=== PATIENT | male | born 1945 | race African-American/Black ===

== ENCOUNTER 2023-04-21 09:09 | Day surgery (SDC) | payer BC ==
[~2023-04-21] VITALS: Ht 167.6 cm; Wt 87.2 kg
[~2023-04-21 09:09] MED LIST: BRILINTA90 MG PO; COZAAR 50MG50 MG/TAB PO; EPCLUSA 400 MG1 EACH PO; IMDUR 60MG60 MG/TAB PO; LASIX 20MG TABL20 MG PO; LR 1,000 ML IV SCH; MAGNESIUM200 MG PO; MASON NATURAL2000 IU PO; Ondansetron 4 MG/2 ML VIAL IV PRN; PROAIR HFA0.09 MG/AC IH; RESTORIL 1515 MG/CAP PO; TOPROL XL 25MG25 MG PO; ZOCOR 20MG20 MG PO; ZOFRAN 4MG T4 MG/TAB PO
[2023-04-21] MEDS ORDERED: PLAVIX 75MG TAB75 MG PO (09:59)
[2023-04-21] MEDS ORDERED: KLOR-CON M2020 MEQ PO (09:59)
[2023-04-21] MEDS ORDERED: ASPIRIN E.C. 8181 MG PO (10:01)
[2023-04-21] MEDS ORDERED: ASPIRIN 32325 MG/TAB PO (10:01)
[2023-04-21] MEDS ORDERED: Lidocaine PF 2% (20 MG/ML) 5 ML VIAL ONE (11:19)
[2023-04-21] MEDS ORDERED: PROTONIX 40MG T40 MG PO (11:28)
[2023-04-21 11:46] VITALS: BP 102/64; PULSE 69
[2023-04-21 12:00] VITALS: BP 106/61; PULSE 70
[2023-04-21 12:15] VITALS: BP 117/69; PULSE 75
[2023-04-21 15:23] VITALS: BP 101/61; PULSE 67; TEMP 97
--- NOTE | 2023-04-21 15:25 | NUR ---
0950 Pt ambulatory to bay 6 with steady gait, breathing even and unlabored. Pt is alert and oriented, accompanied by his . Consents reviewed and signed by pt. IV established. LR infusing via gravity. Call light in reach. LR infusing via gravity at KVO.
--- NOTE | 2023-04-21 16:53 | NUR ---
1146 PATIENT RETURNS TO [facility] [place] [facility] VIA CART. PT AWAKE AND ALERT. RESPIRATIONS UNLABORED. AMBULATED TO RECLINER CHAIR WITH 2:1 SBA. PT DENIES NAUSEA OR ABDOMINAL PAIN. HOOKED UP TO MONITOR AND VS OBTAINED. CALL LIGHT AT SIDE AND PRESENT. 1153 PATIENT TOLERATING DRINK APPLE JUICE AND SNACK MUFFIN & CHEESE WITHOUT NAUSEA OR DIFFICULTY SWALLOWING (EGD ONLY). 1205 IN ROOM SPEAKING WITH PATIENT. 1208 D/C INSTRUCTIONS REVIEWED WITH PATIENT. PT VERBALIZED UNDERSTANDING AND A COPY OF INSTRUCTIONS PROVIDED IN D/C FOLDER. 1210 PATIENT DRESSES SELF. 1215 PATIENT DISCHARGED FROM UNIT VIA W/C TO A PERSONAL VEHICLE. PT LEFT HOSPITAL IN STABLE CONDITION.
== END 2023-04-21 12:15 | disposition home or self-care (01) ==
LOC: SDCO 09:09
DX: K29.30 Chronic superficial gastritis without bleeding (principal); K29.80 Duodenitis without bleeding; K74.60 Unspecified cirrhosis of liver; K26.7 Chronic duodenal ulcer without hemorrhage or perforation; K63.4 Enteroptosis; G47.33 Obstructive sleep apnea (adult) (pediatric)
CPT/HCPCS: J2704; J7120